=== PATIENT | female | born 1980 | race Caucasian/White ===

== ENCOUNTER 2018-07-16 15:39 | Emergency (ER) | payer OTHER ==
--- NOTE | 2018-07-16 16:51 | EDPHY ---
H & P Stated Complaint: l cp/sob naausea/dizzyness today/1 month ago drove here from [place] Time Seen by Provider: 07/16/18 16:25 HPI/ROS: CHIEF COMPLAINT: Chest pain, shortness of breath HISTORY OF PRESENT ILLNESS: 37-year-old female presents with chest pain and shortness of breath. Onset of a sharp and stabbing pain in the left lateral chest this morning. The pain is intermittent and increases with inspiration and with movement. Associated with a restricted feeling in breathing. No other associated symptoms. No alleviating factors. No leg swelling or pain. She also has multiple other concerns including a possible adverse reaction to Lamictal last night. 1 week ago she had diarrhea, which has now almost completely resolved. Multiple family members are also ill. Since moving to [place], she has intermittent tingling in her fingertips and toes, associated with a slightly purplish discoloration. This tends to occur intermittently and does not seem to be associated with cold exposure. REVIEW OF SYSTEMS: complete 10 point ROS reviewed and is negative except for the noted elements in the HPI - Personal History LMP (Females 10-55): Now Current Tetanus Diphtheria and Acellular Pertussis (TDAP): Yes - Medical/Surgical History Hx Asthma: No Hx Chronic Respiratory Disease: No Hx Diabetes: No Hx Cardiac Disease: No Hx Renal Disease: No Hx Cirrhosis: No Hx Alcoholism: No Hx HIV/AIDS: No Hx Splenectomy or Spleen Trauma: No Other PMH: nocturnal epilepsy - Social History Smoking Status: Never smoked - Physical Exam Exam: General Appearance: Alert, pleasant Eyes: Pupils equal and round, no conjunctival pallor or injection ENT, Mouth: Mucous membranes moist Neck: Normal inspection Respiratory: Normal inspection, no chest wall tenderness, Lungs are clear to auscultation Cardiovascular: Regular rate and rhythm Gastrointestinal: Abdomen is soft and nontender Neurological: A&O, nonfocal, normal gait Skin: Warm and dry, no rash Extremities: Nontender, no pedal edema Vascular: 2+ radial pulses, 2+ dorsalis pedis pulses, capillary refill brisk Psychiatric: Mood and affect normal Constitutional: Initial Vital Signs Temperature (C) 36.6 C 07/16/18 15:44 Heart Rate 76 07/16/18 15:44 Respiratory Rate 18 07/16/18 15:44 Blood Pressure 155/95 H 07/16/18 15:44 O2 Sat (%) 99 12/13/18 15:44 O2 Delivery Mode Room Air Allergies/Adverse Reactions: shrimp Allergy (Verified 07/16/18 15:43) Home Medications: Medication Instructions Recorded Lamotrigine 07/16/18 Medical Decision Making - Diagnostics EKG Interpretation: EKG interpreted by me reveals normal sinus rhythm, rate 71, poor R-wave progression. Interpretation: Abnormal EKG Imaging Results: Imaging Impressions Chest X-Ray 07/16/18 16:28 Impression: No acute findings in the chest. Imaging: I viewed and interpreted images myself ED Course/Re-evaluation: This patient presents with atypical chest pain. Stat EKG reveals no evidence of ischemia or dysrhythmia and chest x-ray is unremarkable. D-dimer is normal. Clinical scenario consistent with musculoskeletal etiology of pain. I do not feel that further ED evaluation is indicated. Heart score is 0 and low risk for PE by Wells criteria. I feel that she is safe and stable for discharge home. Warning signs discussed. Differential Diagnosis: Differential diagnosis includes though it is not limited to pneumonia, pneumothorax, pulmonary embolism, aortic dissection, pericarditis, acute coronary syndrome. - Data Points Laboratory Results: Laboratory Results 07/16/18 16:26 07/16/18 16:26 07/16/18 07/16/18 07/16/18 16:36 16:26 16:26 WBC RBC Hgb Hct MCV MCH MCHC RDW Plt Count MPV Neut % (Auto) Lymph % (Auto) [place] % (Auto) Eos % (Auto) Baso % (Auto) Nucleat RBC Rel Count Absolute Neuts (auto) Absolute Lymphs (auto) Absolute Monos (auto) Absolute Eos (auto) Absolute Basos (auto) Absolute Nucleated RBC Immature Gran % Immature Gran # D-Dimer < 0.27 ug/mLFEU ug/mLFEU (0.00-0.50) Sodium 140 mEq/L mEq/L (135-145) Potassium 4.0 mEq/L mEq/L (3.5-5.2) Chloride 103 mEq/L mEq/L (97-110) Carbon Dioxide 24 mEq/l mEq/l (22-31) Anion Gap 13 mEq/L mEq/L (6-14) BUN 9 mg/dL mg/dL (7-23) Creatinine 0.8 mg/dL mg/dL (0.6-1.0) Estimated GFR > 60 Glucose 80 mg/dL mg/dL (70-100) Calcium 10.0 mg/dL mg/dL (8.5-10.4) POC Troponin I 0.01 ng/mL ng/mL (0.00-0.08) NT-Pro-B Natriuret Pep 106 pg/mL pg/mL (0-125) 07/16/18 16:26 WBC 8.19 10^3/uL 10^3/uL (3.80-9.50) RBC 4.88 10^6/uL 10^6/uL (4.18-5.33) Hgb 15.4 g/dL g/dL (12.6-16.3) Hct 46.1 % % (38.0-47.0) MCV 94.5 fL fL (81.5-99.8) MCH 31.6 pg pg (27.9-34.1) MCHC 33.4 g/dL g/dL (32.4-36.7) RDW 12.2 % % (11.5-15.2) Plt Count 379 10^3/uL 10^3/uL (150-400) MPV 9.7 fL fL (8.7-11.7) Neut % (Auto) 65.1 % % (39.3-74.2) Lymph % (Auto) 26.1 % % (15.0-45.0) [place] % (Auto) 6.5 % % (4.5-13.0) Eos % (Auto) 1.6 % % (0.6-7.6) Baso % (Auto) 0.5 % % (0.3-1.7) Nucleat RBC Rel Count 0.0 % % (0.0-0.2) Absolute Neuts (auto) 5.33 10^3/uL 10^3/uL (1.70-6.50) Absolute Lymphs (auto) 2.14 10^3/uL 10^3/uL (1.00-3.00) Absolute Monos (auto) 0.53 10^3/uL 10^3/uL (0.30-0.80) Absolute Eos (auto) 0.13 10^3/uL 10^3/uL (0.03-0.40) Absolute Basos (auto) 0.04 10^3/uL 10^3/uL (0.02-0.10) Absolute Nucleated RBC 0.00 10^3/uL 10^3/uL (0-0.01) Immature Gran % 0.2 % % (0.0-1.1) Immature Gran # 0.02 10^3/uL 10^3/uL (0.00-0.10) D-Dimer Sodium Potassium Chloride Carbon Dioxide Anion Gap BUN Creatinine Estimated GFR Glucose Calcium POC Troponin I NT-Pro-B Natriuret Pep Medications Given: Discontinued Medications Ketorolac Tromethamine (Toradol) 30 mg IVP EDNOW ONE Stop: 07/16/18 17:56 Last Admin: 07/16/18 18:14 Dose: 30 mg Point of Care Test Results: Chemistry 07/16/18 16:36 POC Troponin I 0.01 ng/mL ng/mL (0.00-0.08) Departure - Departure Disposition: Home, Routine, Self-Care Clinical Impression: Chest pain Qualifiers: Chest pain type: precordial pain Qualified Code(s): R07.2 - Precordial pain Condition: Good Instructions: Chest Pain (ED) Additional Instructions: Ibuprofen 600 mg 3 times daily while the pain persists. Referrals: Rossi Cortes MD [Medical Doctor] - As per Instructions (Call to make an appointment.)
[2018-07-16 17:11] LABS: PLATELET COUNT 379 10^3/uL (150-400)
[2018-07-16] MEDS ORDERED: KETOROLAC 15 MG/1 ML SDV IVP ONE (17:55)
[2018-07-16 18:31] VITALS: BP 126/71
--- NOTE | 2018-07-18 20:31 | CPEKG ---
Test Reason : OPEN Blood Pressure : / mmHG Vent. Rate : 071 BPM Atrial Rate : 070 BPM P-R Int : 123 ms QRS Dur : 084 ms QT Int : 395 ms P-R-T Axes : 060 033 020 degrees QTc Int : 430 ms Sinus rhythm Anteroseptal infarct, old Confirmed by Rodney Huff ([id number]) on 07/18/2018 8:30:57 PM Referred By: Confirmed By:Rodney Huff
== END 2018-07-16 18:32 | disposition home or self-care (01) ==
DX: R07.2 Precordial pain (principal); R06.02 Shortness of breath
CPT/HCPCS: 84484-PO; 96374; J1885